=== PATIENT | female | born 1980 | race African-American/Black ===

== ENCOUNTER 2024-09-18 21:09 | Inpatient (IN) | payer OTHER, SELFPAY ==
[2024-09-18] VITALS (7 sets, daily range): BP systolic 112–130; BP diastolic 68–99; BMI 23.9; BMI 23.8
[2024-09-18 12:54] LABS: % Basophils 1.3 % (0-2); % Eosinophils 5.8 % (0-6); % Immature Granulocytes 0.2 % (0-0.5); % Lymphocytes 26.9 % (20.5-51.1); % Monocytes 9.4 % (1.7-9.3); % Neutrophils 56.4 % (42.2-75.2); Absolute Basophils 0.1 10^3/uL (0-0.2); Absolute Eosinophils 0.3 10^3/uL (0-0.7); Absolute Lymphocytes 1.3 10^3/uL (1.2-3.4); Absolute Monocytes 0.4 10^3/uL (0.1-0.6); Absolute Neutrophils 2.7 10^3/uL (1.4-6.5); Hematocrit 42.2 % (37.0-47.0); Hemoglobin 13.4 g/dL (12.0-16.0); Mean Corp Hgb Conc. 31.8 g/dL (33.0-37.0); Mean Corpuscular Hgb 26.3 pg (27.0-31.0); Mean Corpuscular Volume 82.7 fL (81.0-99.0); Mean Platelet Volume 9.2 fL (7.4-10.4); Nucleated Red Blood Cells % 0 %; Platelet Count 310 10^3/uL (130-400); Red Cell Dist. Width 15.8 % (11.5-14.5); White Blood Cell Count 4.7 10^3/uL (4.8-10.8)
[2024-09-18 13:05] LABS: HCG, Serum Qualitative Screen Negative
[2024-09-18 13:27] LABS: Blood Urea Nitrogen 19 mg/dl (7-17); Calcium 9.3 mg/dl (8.4-10.2); Carbon Dioxide 32 mmol/L (22-30); Chloride 99 mmol/L (98-107); Estimated Creatinine Clearance 113 ml/min; Glucose 80 mg/dl (70-99); Sodium 139 mmol/L (135-145); eGFR > 60.00
[2024-09-18] MEDS: TORADOL 15 MG IV (14:57)
--- NOTE | 2024-09-18 17:04 | CON.MD ---
Consultation - Medical
-
This is a 43 year old AA female with history of heroin use (crack, denies IVDA) seen today with concern of pain and discoloration to toes left foot 1,2,3. She states she was seen 3 weeks ago for swelling to the left foot
There is no history of injury, exposure to cold.
PMH - also includes Benzo withdraw,Opiate dependence, Denies HIV, DM2 or any other known pmh.
Reviewed available history, allergies and meds
EXAM-
Pedal pulses are diminished 1/4 DPA B/L, CFO CONTROLLER 2/4. Feet are warm and dry. Integument is scaly and dry with fungal dermatitis. Nails are over grown and mycotic x 10. Minimal Left foot edema. + Pain to toes left foot, however, necrotic area is dry and
non fluctuant and appears to be superficial.
XRAY was negative for any underlying pathology osteomyelitis, fracture or ST gas.
A/P
Primary concern- Pain left foot with dry superficial necrosis to toes 2,3 and healing bulla left great toe may be the result of micro embolization. I am unaware of cardiac history or if there is any and would recommend cardiology eval if one has not
been performed. Wound care with xeroform and dry dressing of unfolded 4x4 and paper tape to affix over xeroform and gauze. DARCO, post op shoe to avoid pressure to toes.
Secondary concerns-Tinea pedis and onychomycosis-Recommend wash/dry feet 2-3x per week, apply topical antifungals to feet. Medically necessary nail care.
--- NOTE | 2024-09-18 17:17 | EDRN ---
the pt is resting in stretcher in the lowest position, side rails up x2, call garnett within reach, HOB elevated, no s/s of distress, VS WNL, the pt asked for tierra shayna and a sandwich and this RN provider tierra corral and an ER lunch box for her,
awaiting for podiatry to come to the pts bedside
--- NOTE | 2024-09-18 18:32 | ED.GENMED ---
History of Present Illness
General
Chief Complaint: Skin Problem
Source: patient
Exam Limitations: none
Time Seen by Provider: 09/18/24 12:39
History of Present Illness
History of Present Illness:
43-year-old female who presents for evaluation of her left foot and great toe. The patient states she has had pain. In addition, she admits that she has had swelling and pain for the last 3-week. No fevers. No chest pain. No shortness of
breath. Patient admits that she was at [facility] a few weeks ago and had similar pains but was also having chest pain. Patient is unable to give further specific history. She denies fevers. She denies IV drug use. She denies any recent
cold exposure or frostbite.
Past History
Past History
ED Past Medical History: Asthma, HTN and Other (Opiate use)
Phy Exam
Physical Exam
Physical Exam:
CONSTITUTIONAL Vital signs reviewed, Patient alert and oriented to person, place and time. Well-appearing
HEAD atraumatic, normocephalic.
EYES eyelids normal to inspection, Extraocular muscles intact, Conjunctiva normal, Sclera normal.
NECK normal range of motion, Trachea midline, no jugular venous distention.
RESP no respiratory distress
BACK No obvious deformities
UPPER EXTREMITY Gross Range of motion normal, gross motor strength normal
LOWER EXTREMITY Gross range of motion normal, Gross motor strength normal. There is dry cracking noted to the digits of the left foot. Both feet are warm and well-perfused. Difficult to palpate dorsalis pedis pulses but Dopplers do show pulses.
She does have black skin noted to the tips of the digits 2 and 3 and blackened skin noted to the base of the first digit as well. No drainage. No blisters.
NEURO Speech normal, No focal motor deficits include, [place] coma scale 15, Memory normal, Cranial Nerves intact to screening exam.
SKIN Skin warm, dry, and normal in color.
PSYCHIATRIC Patient oriented to person place and time, Normal affect.
Course
Orders/Labs/Results
Orders:
Orders
09/18/24 12:37
Test Result ONCE
09/18/24 12:43
Basic Metabolic Panel Urgent
Complete Blood Count/With Diff Urgent
HCG, Serum Qualitative Screen Urgent
09/18/24 13:04
Foot, Left 3 View [CR Foot - Left Min 3 Views] Urgent
Comment:
Reason For Exam: pain, infection
09/18/24 13:55
Ketorolac [Toradol] 15 mg IV NOW STA
09/18/24 17:02
PODIATRY CONSULT Urgent
Consulting Provider: Marcia Mendosa
Was physician already notified: Yes
Abnormal Lab Results
09/18/24
12:43
WBC 4.7 L 10^3/uL
(4.8-10.8)
MCH 26.3 L pg
(27.0-31.0)
MCHC 31.8 L g/dL
(33.0-37.0)
RDW 15.8 H %
(11.5-14.5)
Monocytes % 9.4 H %
(1.7-9.3)
Carbon Dioxide 32 H mmol/L
(22-30)
BUN 19 H mg/dl
(7-17)
09/18/24 12:43
09/18/24 12:43
Vital Signs
Initial and Last Documented VS:
Initial Vital Signs
Temp Pulse Resp BP Pulse Ox
98.2 F 69 16 116/99 100
09/18/24 12:31 09/18/24 12:31 09/18/24 12:31 09/18/24 12:31 09/18/24 12:31
Last Documented Vital Signs
Temp Pulse Resp BP Pulse Ox
97.6 F 82 20 128/92 99
09/18/24 17:17 09/18/24 17:17 09/18/24 17:17 09/18/24 17:17 09/18/24 17:17
MDM/Problems Addressed
MDM/Problems Addressed:
Onychomycosis, toe skin wound, rule out micro emboli to the foot
*Radiology
Radiology exam reviewed: radiology read reviewed
*Pulse Oximetry
Patient hypoxic: no
*Critical Care Note
Total Time (30-74mins, 75-104mins- exclusive of procedures): Not Applicable
Data Reviewed
Source: patient
Prescriptions/Medications Considered But Not Given:
Considered antibiotics but podiatry feels no infection
Patient Management
Discussion with other providers: Hospitalist and Car Racer (Case discussed with podiatry)
Escalation/DeEscalation of care consider admission/obs:
Seen by podiatry. Recommends care as noted in her note. Does not recommend antibiotics at this time. Does need workup for emboli to the foot given the blackened skin to the first 3 digits
ED Attending Note
-
Portions of this chart may have been created with voice recognition software.� Occasional wrong word or��sound alike� substitutions may have occurred due to the inherent limitations of voice recognition software.
Discharge Plan
Departure
Referrals:
[facility] [Family Provider] -
Interventions
Interventions:
*Risk Screen - Suicide Last Done: 09/18/24 12:31
*General Assessment Last Done: 09/18/24 12:31
*Neglect/Abuse Screening Last Done: 09/18/24 12:31
ED- Fall Risk Assessment Last Done: 09/18/24 12:46
*ED COVID-19 Vaccine History Last Done: 09/18/24 12:46
ED-Skin Assessment Last Done: 09/18/24 12:46
Discharge Date and Time
Print Language: BULGARIAN
--- NOTE | 2024-09-18 19:16 | HPS.HSE ---
Family Physician
-
Family Physician: Facility [facility]
Chief Complaint
-
Left foot first, second, third toe pain prior bilateral foot swelling to heels +3
History of Present Illness
43-year-old female complaining of left foot first, second, third toe pain . She reports she was seen 3 weeks ago due to bilateral foot swelling to heels approximate +3. She was in [place] when picked up for a Bench warrant and then she started
complaining of chest pain and was taken to [facility]. She does have history of smoking crack cocaine starting 3 years ago. She states she believes she had a nuclear stress test on 09/06/2023 with an echo. She states they were not
concerned about any heart attack however she had some kind of valvular issue although did not report any decreased pumping quality/ejection fraction mentioned. She states slowly the swelling has gone down to bilateral feet and ankles. She has an
open blister to her left foot first great toe with a painful dark purpleish second toe and slight purplish third toe hypersensitive and touch. She has bilateral callused cracked heels and fungal toenails bilateral feet. She was then taken to [place] [facility] on 09/17 due to where her warrant was and is due to have her court appearance in front of a learning engineer this 09/20/2024 to possibly go home. She denies any history to exposure to cold or frostbite.
Medical History
Past Medical History
Past Medical History: Reports Other
Additional Past Medical History:
HTN
Crack cocaine use smoking past 2 to 3 years
Nicotine abuse x 7 years started a 38
7 para 7 last child age 33
Past Surgical History: Reports Other (Laparoscopic cholecystectomy)
Social History
Tobacco: Smoker (1 pack a day)
Alcohol: None
Drug: Cocaine (Smokes crack)
Personal: ( in )
[facility])
Employment: Disabled
Family History
Family History: Other (Patient's mother during childbirth with her sister 1 year younger than her, patient father is unknown patient grew up with maternal grandmother who in her 80s of [place])
Allergies / Home Medications
Allergies reflects when Allergies were last updated in [facility].
Home Medications with original date entered in [facility]
Allergy/Medication List:
Allergies
Allergy/AdvReac Type Severity Reaction Status Date / Time
amoxicillin Allergy Rash Verified 09/18/24 12:36
cephalexin [From Keflex] Allergy Rash Verified 09/18/24 12:36
Penicillins Allergy Rash Verified 09/18/24 12:36
sulfamethoxazole Allergy Rash Verified 09/18/24 12:36
[From Bactrim]
trimethoprim [From Bactrim] Allergy Rash Verified 09/18/24 12:36
Home Medications
carvedilol 25 mg tablet 25 mg PO BID 09/18/24
folic acid 1 mg tablet 1 mg PO DAILY 09/18/24
thiamine HCl (vitamin B1) 100 mg tablet 100 mg PO DAILY 09/18/24
valsartan 40 mg tablet (Diovan) 40 mg PO BID 09/18/24
Review of Systems
-
History Source: Patient and Other (2-3 correctional officers at bedside, right ankle handcuffed to bed)
A 12 point ROS was completed and negative except as noted: Yes
Constitutional: Denies Fever or Chills
EENT: Denies Tearing or Runny Nose
Respiratory: Denies Cough or Trouble Breathing
Cardiac: Denies Chest Pain, Diaphoresis, Palpitations or Syncope
Abdomen/GI: Denies Abdominal Pain, Nausea, Vomiting, Diarrhea or Constipated
: Denies Dysuria, Frequency, Flank Pain, Incontinence or Difficulty Voiding
Musculoskeletal: Reports Joint Pain (Left first, second, third toe pain, left first toe dorsal aspect popped blister, second toe and distal tip purpleish black increase sensitivity, third toe slight swelling with purpleish black in color increase
sensation, fungal toenails bilateral feet)
Skin: Denies Itching or Rash
Neurological: Denies Dizzy or Headache
Endocrine: Reports No Symptoms
Hematologic/Lymphatic: Reports No Symptoms
Psych: Reports Calm
Physical Exam
Vital Signs
Vital Signs
Temp Pulse Resp BP Pulse Ox
97.6 F 82 20 128/92 99
09/18/24 17:17 09/18/24 17:17 09/18/24 17:17 09/18/24 17:17 09/18/24 17:17
Physical Exam
General: Conversant and Pain; No Fever or Chills
HEENT: NormoCephalic, Anicteric, Moist mucous membranes, PERRLA, [place] Conjunctivae and No Ptosis
Respiratory: Clear; No Wheezes, Rales or Rhonchi
Cardiac: S1/S2 and Regular Rhythm; No Murmur, Rub, Gallop, Peripheral Edema or Calf Tenderness
Breast: Deferred by me
GI: Soft, Non Tender, Non Distended, Normal Bowel Sounds and No Hepatosplenomegaly
Rectal: Deferred by Provider
Genito-urinary: Deferred by me
Musculoskeletal: No Clubbing, Edema, Left Lower Extremity (Left first, second, third toe pain, left first toe dorsal aspect popped blister, second toe and distal tip purpleish black increase sensitivity, third toe slight swelling with purpleish
black in color increase sensation, fungal toenails bilateral feet) and Other (+2 bilat dorsal pedal pulse palpable); No Edema, Left Upper Extremity, Edema, Right Upper Extremity or Edema, Right Lower Extremity
Skin: Warm and Dry; No Rash or Jaundice
Neuro: AO x 3, No Motor Deficits and Other (Right ankle handcuffed to bed with 2 correctional officers at bedside as patient is from [facility]); No Slurred Speech, Facial Droop, Tremors or Sedated
Psych: Calm
Laboratory Results
-
09/18/24 12:43
09/18/24 12:43
Laboratory Results
Total Bilirubin Cancelled 09/18/24 12:43
AST Cancelled 09/18/24 12:43
ALT Cancelled 09/18/24 12:43
Alkaline Phosphatase Cancelled 09/18/24 12:43
Impression/Plan
-
Impression/plan:
Admit to [facility]
#Painful left foot with dry superficial necrosis second, third toes
#Healing open blister left great toe may be result of microembolization with recent blisters/+3 edema bilateral dorsal feet
-Seen by Dr. Mendosa at bedside podiatry
-Xeroform and dry dressing of unfolded 4 x 4 and paper tape to affix over -Xeroform and gauze
-Darco postop shoe to avoid pressure to toes
-Percocet 5/235 severe,mod pain tramadol, tylenol
-consult Vasc-spoke with Dr. Swain would like venous Dopplers bilateral legs rule out DVT, CTA aorta with runoff
CXR: Moderate soft tissue swelling of the great toe.
Large plantar calcaneal spur
#Tinea pedis/bilateral feet toes Onychomycosis
-Consider follow-up with podiatry
-Wash/dry feet 2 times per week
-Apply topical antifungals to feet
-Medically necessary nail care
#Reported chest pain 3 weeks ago
-Obtain records from [facility] was treated 1 - 09/07/2024
EKG: NSR 82 bpm, QTc [address] abnormality V2 V3
#HTN�benign
BP 128/92
-Continue carvedilol 25 mg twice daily
-Valsartan 40 mg p.o. twice daily
#Smoke crack cocaine 3 times a week
-Started approximately 2 to 3 years ago
#Nicotine abuse
-1 pack a day nicotine smoker x 7 years started age 38
# 7 para 7 by age 31
DVT prophylaxis
Subcu heparin
Full code
--- NOTE | 2024-09-18 19:52 | W.PN.UPDATE ---
Addendum entered and electronically signed by Jaycee Devries MD 09/18/24 21:11:
Vascular recommending CTA abdomen/aorta with runoff and venous duplex US.
Original Note:
Update Note
Progress Note Update
This is an addendum to the H&P written by Ashley Campos on 09/18/2024. Patient seen and examined independently with WELDING PRODUCTION SUPERVISOR.
43-year-old -Malagasy female past medical history of heroin use, crack use, hypertension, no prior IV drug use, presenting with pain and discoloration of the 1st-3rd left toes.
She was admitted at [facility] a few weeks ago for swelling in the lower extremities/chest pain. She had what sounds like a nuclear stress test/echo which apparently showed a valvular problem. She did not have discoloration of her toes at
that time.
Patient vital signs normal.
Examination of toe reveals blistering great toe.
Labs unremarkable apart from leukopenia. Foot x-ray shows moderate soft tissue swelling of the great toe.
EKG shows normal sinus rhythm with nonspecific ST-T wave changes.
She was seen by podiatry in the ER who noted diminished dorsalis pedis bilaterally and posterior tibialis pulses. Podiatry is concerned about potential microembolization. She also concerned for tinea pedis/onychomycosis.
Unclear if patient is having microembolization versus ischemia secondary to PAD secondary to crack cocaine/smoking versus underlying sickle cell versus underlying autoimmune disorder. Check arterial ultrasound/SANDEE. Vascular surgery consulted.
Will not repeat echocardiogram until we obtain records from the hospital. Wound care consulted.
[2024-09-18] MEDS: PERCOCET 5/325 1 TABLET PO (19:57)
[2024-09-18] MEDS: HEPARIN 5000 UNITS SC (22:32)
[2024-09-18] MEDS: ULTRAM 50 MG PO (22:34)
--- NOTE | 2024-09-19 00:17 | TRANSFER ---
Received pt from ED at 2145 dx w L 1st, 2nd,3rd pain, blister great toe, possible necrosis 2,3rd. Left foot toes were wrapped w xeroform & dav, unwrapped for assessment. Left great toe w +1 edema, open blister, and necrosis, scant s/s drainage
noted to xeroform. 2nd and 3rd toes noted w necrotic tips. Darco boot to left foot. +DP and +PT bilaterally. Pt AAOx3, able to make all needs known. VS WNL. Reports pain 10/10 when left foot touched. Bed in lowest position, call garnett within reach.
Guards at the bedside.
[2024-09-19] MEDS: PERCOCET 5/325 1 TABLET PO ×4 (05:09→21:48)
[2024-09-19 06:31] LABS: % Basophils 1.3 % (0-2); % Eosinophils 8.7 % (0-6); % Lymphocytes 39.8 % (20.5-51.1); % Monocytes 11.7 % (1.7-9.3); % Neutrophils 38.5 % (42.2-75.2); Absolute Eosinophils 0.3 10^3/uL (0-0.7); Absolute Lymphocytes 1.2 10^3/uL (1.2-3.4); Absolute Monocytes 0.4 10^3/uL (0.1-0.6); Absolute Neutrophils 1.2 10^3/uL (1.4-6.5); Hematocrit 35.9 % (37.0-47.0); Hemoglobin 11.6 g/dL (12.0-16.0); Mean Corp Hgb Conc. 32.3 g/dL (33.0-37.0); Mean Corpuscular Hgb 26.9 pg (27.0-31.0); Mean Corpuscular Volume 83.1 fL (81.0-99.0); Mean Platelet Volume 9.6 fL (7.4-10.4); Nucleated Red Blood Cells % 0 %; Platelet Count 271 10^3/uL (130-400); Red Blood Cell Count 4.32 10^6/uL (4.20-5.40); Red Cell Dist. Width 15.7 % (11.5-14.5)
[2024-09-19 06:58] LABS: Blood Urea Nitrogen 23 mg/dl (7-17); Calcium 8.6 mg/dl (8.4-10.2); Carbon Dioxide 31 mmol/L (22-30); Chloride 100 mmol/L (98-107); Estimated Creatinine Clearance 85 ml/min; Glucose 79 mg/dl (70-99); Potassium 4.4 mmol/L (3.5-5.1); Sodium 137 mmol/L (135-145); eGFR > 60.00
--- NOTE | 2024-09-19 07:59 | CON.VAS ---
Consultation
Consultation Request
Date/Time Consultation Performed: 09/19/2024 0745
Requesting Provider: Hospitalist
Performing Provider: Sarah Allan NP-C for Ryan Swain MD
Reason for Consultation: Left foot first second and third digit wound
Medical History
-
Chief Complaint: Left foot first second and third digit wounds
History of Present Illness:
This is a 43-year-old female without significant prior medical history other than hypertension who noted 3 weeks ago foot swelling to the heels. She was picked up for a warrant and arrested and at that time complained of chest pain and was
transported to the hospital in [place] ([facility]) and was ruled out for a coronary event. She notes that the swelling has subsided but now has painful discolored blisters especially in the left foot great toe and some of the other
toes as well. Right side first toe slight discoloration she notes but no significant ulcerations that she notes. She denies any traumas or history of cold exposure. No history of peripheral arterial disease. She does note tobacco use history.
She also has a history of cocaine abuse.
Left foot
Past Medical History
Past Medical History: HTN and Other ( 7 para 7 last child age 33)
Past Surgical History: Cholecystectomy (Laparoscopic)
Social History
Tobacco: Smoker
Drug: Cocaine
Allergies / Home Medications
Allergy/AdvReac Type Severity Reaction Status Date / Time
amoxicillin Allergy Rash Verified 09/18/24 12:36
cephalexin [From Keflex] Allergy Rash Verified 09/18/24 12:36
Penicillins Allergy Rash Verified 09/18/24 12:36
sulfamethoxazole Allergy Rash Verified 09/18/24 12:36
[From Bactrim]
trimethoprim [From Bactrim] Allergy Rash Verified 09/18/24 12:36
�Medication �Instructions �Recorded �Confirmed �Type
albuterol 90 mcg-budesonide 80 2 inh inhalation BID 09/18/24 09/18/24 History
mcg/actuation HFA aerosol inhaler
carvedilol 25 mg tablet 25 mg PO BID 09/18/24 09/18/24 History
folic acid 1 mg tablet 1 mg PO DAILY 09/18/24 09/18/24 History
thiamine HCl (vitamin B1) 100 mg 100 mg PO DAILY 09/18/24 09/18/24 History
tablet
valsartan 40 mg tablet (Diovan) 40 mg PO BID 09/18/24 09/18/24 History
Review of Systems
-
History Source: Patient
Constitutional: Reports No Symptoms
EENT: Reports No Symptoms
Respiratory: Reports No Symptoms
Cardiac: Reports No Symptoms
Vascular: Denies Leg Pain / Claudication, Numbness or Tingling
Abdomen/GI: Reports No Symptoms
: Reports No Symptoms
Musculoskeletal: Reports Edema (Reports she had increased swelling at bilateral lower extremities)
Skin: Reports Other (Wounds at left first, second, and third toe digits with foot pain)
Neurological: Reports No Symptoms
Endocrine: Reports No Symptoms
Physical Exam
Vital Signs
Temp Pulse Resp BP Pulse Ox
98.0 F 84 18 92/54 99
09/18/24 21:45 09/18/24 23:39 09/18/24 21:45 09/18/24 23:39 09/18/24 21:45
Lab Results
09/19/24 04:49
09/19/24 04:49
Physical Exam
General: No Apparent Distress
HEENT: Normocephalic, Anicteric and Atraumatic
Respiratory: Non Labored Respirations
Cardiac: Negative JVD
GI: Soft, Non Tender and Non Distended
Musculoskeletal: No Edema
Skin: Warm
Neuro: AO x 3
Pulses: Bilateral Femoral: +2, Bilateral Popliteal: +2, Bilateral Dorsalis Pedis: +2 and Bilateral Posterior Tibial: +1
Assessment / Plan
-
Assessment: 43-year-old female with wound at left foot first, second, and third digits
Plan/based on findings, Dr. Ryan Swain discussed with patient from a vascular perspective would favor ruling out a DVT given that she had swelling that predated the ulcerations. In addition based on the appearance and involvement of both feet, he
recommended we get a CTA of the aorta with runoff to rule out any atheroembolic source.
Dr. Ryan Swain reviewed her CT angiogram that was completed. No evidence any atheroembolic source. No evidence of any aortic aneurysms. No significant plaque in her aorta or runoff arteries. No evidence of significant occlusive disease. Venous
duplex demonstrates no evidence of DVT. Therefore I do not think there is a clear-cut vascular pathology here. For completeness sake we could get a CT scan of the chest to rule out any thoracic aortic aneurysm that may be embolizing, but seems
less likely. Her abdominal CT demonstrates what appears to be an enlarged uterus or some other mass in her pelvis or that emanates from her pelvis. This may correlate to her fullness on exam in the abdomen. Will defer to her primary care team for
further management and evaluation/workup of this.
[2024-09-19 08:50] VITALS: BP 117/78
[2024-09-19] MEDS: DIOVAN 40 MG PO ×2 (09:35→20:18)
[2024-09-19] MEDS: VITAMIN B1 100 MG PO (09:35)
[2024-09-19] MEDS: HEPARIN 5000 UNITS SC ×2 (09:35→20:19)
[2024-09-19] MEDS: FOLVITE 1 MG PO (09:36)
[2024-09-19] MEDS: COREG 25 MG PO ×2 (09:36→20:19)
--- NOTE | 2024-09-19 09:51 | CM ---
Reviewed the chart notes and spoke with the patient at the bedside. Patient currently incarcerated in the [facility]. The patient prior resided with her children in a two story home with one step to enter. The patient reports only DME is a nebulizer.
No VN/SNF in the past. CM continues to be available to patient/family and is monitoring medical plan for needs at discharge.
Plan: Discharge back to [facility] when medically stable if required.
--- NOTE | 2024-09-19 10:50 | W.PN.UPDATE ---
Update Note
Progress Note Update
Seen and examined earlier this a.m. with RODY Allan. Full consultation to follow. Briefly 43-year-old female without significant prior medical history noted 3 weeks ago foot swelling to the heels. She was picked up for a warrant and arrested and at
that time complained of chest pain and was transported to the hospital in [place] ([place]) and was ruled out for a coronary event. She notes that the swelling has subsided but now has painful discolored blisters especially in the left foot
great toe and some of the other toes as well. Right side first toe slight discoloration she notes but no significant ulcerations that she notes. She denies any traumas or history of cold exposure. No history of peripheral arterial disease. She
does note tobacco use history. She also has a history of crack cocaine abuse. On exam/she is awake and alert. Head is normocephalic and atraumatic. Eyes are anicteric. Neck is soft without jugular venous distention. Breathing is unlabored.
Abdomen is soft though there is a fullness. I ask if she has had any prior surgery and she denies. Lower extremity with 2+ femoral, popliteal and PT pulses palpable 2+ bilaterally. DP pulses slightly weak bilaterally. However they are palpable.
Feet are warm. No rubor. Left first toe distal superficial ulceration. No purulence. No ranjan dry gangrene per se. There is some discoloration of the other toes. Right foot less discolored and no ulcerations just the first toe dorsum with
slight blackish discoloration superficially.
Plan/based on findings, I discussed with patient from a vascular perspective would favor ruling out a DVT given that she had swelling that predated the ulcerations. In addition based on the appearance and involvement of both feet, I recommended we
get a CTA of the aorta with runoff to rule out any atheroembolic source.
I reviewed her CT angiogram that was completed. No evidence any atheroembolic source. No evidence of any aortic aneurysms. No significant plaque in her aorta or runoff arteries. No evidence of significant occlusive disease. Venous duplex
demonstrates no evidence of DVT. Therefore I do not think there is a clear-cut vascular pathology here. For completeness sake we could get a CT scan of the chest to rule out any thoracic aortic aneurysm that may be embolizing, but seems less
likely. Her abdominal CT demonstrates what appears to be an enlarged uterus or some other mass in her pelvis or that emanates from her pelvis. This may correlate to her fullness on exam in the abdomen. Will defer to her primary care team for
further management and evaluation/workup of this.
[2024-09-19 15:16] VITALS: BP 102/60
--- NOTE | 2024-09-19 15:39 | W.PN.HOSP.TC ---
Today's Communication/Plan
-
Assessment / Plan
Assessment / Plan
Gen-AAOx3, NAD
HEENT-NC, AT, anicteric, clear oral mm
Neck-supple
CV-reg, no M, +S1/S2
Lungs-clear B/L
Abd-soft, NT, ND
Musculoskeletal-no edema, left toes with wound dressing clean dry intact
Skin-warm and dry
Neuro-grossly non-focal
Psych-calm, cooperative
Left toe pain:
-Involving first second and third toes with open blister and edema
-Continue local wound care and antifungals, pain control
-Vascular imaging shows no evidence of acute abnormality, no vascular intervention indicated
Uterine mass:
-Incidentally noted on CT imaging
-Obtain pelvic ultrasound
-Follow-up further recommendations from [employer]
History of chest pain:
-Obtain records from [facility] in [facility] where she was apparently treated 1 - 09/07/24
CODE STATUS: Full code
Anticipated Discharge: Within 24 hours
Subjective/Interval History
-
Date of Service: September 19, 2024
Ms. Vallejo was seen and examined at bedside this morning. No acute distress.
Objective Data
-
Labs:
Laboratory Results
09/19/24
04:49
WBC 3.0 L
Hgb 11.6 L
Hct 35.9 L
Plt Count 271
Sodium 137
Potassium 4.4
Chloride 100
Carbon Dioxide 31 H
BUN 23 H
Creatinine 0.8
Glucose 79
Calcium 8.6
Vital Signs:
Vital Signs
Temp Pulse Resp BP Pulse Ox
98.2 F 80 16 102/60 97
09/19/24 15:16 09/19/24 15:16 09/19/24 15:16 09/19/24 15:16 09/19/24 15:16
I&O
09/18/24 09/19/24 09/20/24
06:59 06:59 06:59
Intake Total 960 / 960
Balance 960 / 960
Review of Systems
-
History Source: Patient
All other systems: Reviewed and negative
[2024-09-19] MEDS: MELATONIN 5 MG PO (21:48)
[2024-09-19 23:26] VITALS: BP 102/64
[2024-09-20] MEDS: PERCOCET 5/325 1 TABLET PO ×3 (03:24→14:33)
[2024-09-20 07:25] VITALS: BP 112/64
[2024-09-20] MEDS: VITAMIN B1 100 MG PO (09:26)
[2024-09-20] MEDS: DIOVAN PO (09:33)
[2024-09-20] MEDS: HEPARIN 5000 UNITS SC (09:33)
[2024-09-20] MEDS: COREG PO (09:33)
[2024-09-20] MEDS: FOLVITE 1 MG PO (09:34)
--- NOTE | 2024-09-20 10:42 | CS.OBGYN ---
Consult Summary - [employer]
-
43 y/o menstruating female was seen in consult for a uterine mass that was seen on her CT angio that was done to assess the vasculature going to her lower extremity/Foot.
Pt seen and examined. Full consult dictated
Of note-- Monthly menses lasts 1-2 days. Min flow. No abnormal bleeding/ No bleeding in between her periods. No dysmenorhea
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 No h/o wood patternmaker problems
Pt wasn't aware that she had fibroids but they do run in her family
Vulva/ vagina- Nl No lesions
Abd- Soft/NT
Uterus- 16-18 weeks size/AV/NT
Adnexa- BINGO MANAGER
A/P-
43 y/o without any menstrual dysfunction- with an incidental, asymptomatic fibroid found on imaging
Imaging shows a large fibroid but can't rule out sarcoma
Extremely low suspicion of a sarcoma given the fact that pt is asymptomatic, no menometrorrhagia, no risk factors for sarcoma- no h/o tamoxifen use or pelvic radiation.
There are no imaging findings to suggest sarcoma- No areas of necrosis, No hemorrhage within the fibroid mass, No adenopathy and no peritoneal implants
Fibroids are super common especially in the population and sarcomas are exceedingly rare.
No wood patternmaker concerns to keep pt hospitalized frm a wood patternmaker standpoint at this time
Would recommend that she follow up with a wood patternmaker as an outpt
--- NOTE | 2024-09-20 13:08 | W.DCSUMMARY ---
Discharge Summary
Discharge Data
Date of Admission: 09/18/24
Date of Discharge: 09/20/24
-
Pending Results: No
Hospital Course
Gen-AAOx3, NAD
HEENT-NC, AT, anicteric, clear oral mm
Neck-supple
CV-reg, no M, +S1/S2
Lungs-clear B/L
Abd-soft, NT, palpable lower abdominal mass
Musculoskeletal-no edema, left toes with wound dressing clean dry intact
Skin-warm and dry
Neuro-grossly non-focal
Psych-calm, cooperative
Ms. Vallejo is a 43-year-old female with a medical history of hypertension, crack cocaine use, and dysmenorrhea who presented with left foot pain and swelling. She she received local wound care here. Vascular imaging showed no evidence of DVT or
ischemic disease. Wound did not appear grossly infected however she will be given a prescription for 5-day course of antibiotics for possible soft tissue infection. Imaging incidentally noted a large uterine mass. Patient reports having only 1
day of vaginal bleeding per menstrual cycle which has been normal for her for over the past 10 years. She reports being unaware of any uterine abnormalities. She underwent further evaluation with transvaginal ultrasound. After evaluation by
gynecology, these uterine findings are most likely extensive uterine fibroids which can be further managed in the outpatient setting with no indication for ongoing inpatient evaluation and treatment. Of note, she arrived in police custody from
[facility] where she was taken after being released from health system in [facility] where she was evaluated for complaints of chest pain. She reports having undergone nuclear stress test on 09/06/2023 at
health system with reports of a valvular issue (per patient). Records were requested but have not yet been obtained or reviewed. At the time of this hospital discharge she will be released back to the custody of [facility]
Facility's officers.
Discharge Plan
-
Patient Disposition: [facility]
Discharge Diagnosis/Procedures: Left foot wound
Condition: Good
Diet: No restrictions
Activity: As tolerated
Wound Care: Will require wound care to left foot
Activity Restrictions/Additional Instructions:
Ms. Vallejo is a 43-year-old female with a medical history of hypertension, crack cocaine use, and dysmenorrhea who presented with left foot pain and swelling. She she received local wound care here. Vascular imaging showed no evidence of DVT or
ischemic disease. Wound did not appear grossly infected however she will be given a prescription for 5-day course of antibiotics for possible soft tissue infection. Imaging incidentally noted a large uterine mass. Patient reports having only 1
day of vaginal bleeding per menstrual cycle which has been normal for her for over the past 10 years. She reports being unaware of any uterine abnormalities. She underwent further evaluation with transvaginal ultrasound. After evaluation by
gynecology, these uterine findings are most likely extensive uterine fibroids which can be further managed in the outpatient setting with no indication for ongoing inpatient evaluation and treatment. Of note, she arrived in police custody from
[facility] where she was taken after being released from health system in [facility] where she was evaluated for complaints of chest pain. She reports having undergone nuclear stress test on 09/06/2023 at
health system with reports of a valvular issue (per patient). Records were requested but have not yet been obtained or reviewed. At the time of this hospital discharge she will be released back to the custody of [facility]'s officers.
Referrals:
[facility],Facility [Family Provider] -
Prescriptions:
New
ciprofloxacin HCl 750 mg tablet
750 mg PO BID 5 Days Qty: 10 0RF
metronidazole 250 mg tablet
250 mg PO Q8H 5 Days Qty: 15 0RF
Continued
carvedilol 25 mg Tablet
25 mg PO BID
thiamine HCl (vitamin B1) 100 mg Tablet
100 mg PO DAILY
folic acid 1 mg Tablet
1 mg PO DAILY
valsartan [Diovan] 40 mg Tablet
40 mg PO BID
albuterol-budesonide 90-80 mcg/actuation Hfa Aerosol Inhaler
2 inh INHALATION BID
Rx Instructions:
as a single dose; may repeat up to 6 doses per day (12 inhalations)
Discharge Orders:
Discharge Patient (As Directed); Ordered 09/20/24
Ordered By: Giuseppe Garibay
Discharge Date and Time
Print Language: SPANISH
--- NOTE | 2024-09-20 13:39 | CM ---
Pt for discharge today - return to [facility]
Spoke with [facility] in Dispensary - aware of d/c
Plan - return to [facility]
R - [phone]
- [phone]
[2024-09-20 15:26] VITALS: BP 105/59
== END 2024-09-20 18:05 | DRG 607 ==
LOC: 2 SOUTH 21:09
PROVIDERS: Clinical Nurse Specialist Family Health; ADMITTING PHYSICIAN Hospitalist; ATTENDING PHYSICIAN Internal Medicine; CONSULT PHYSICIAN Obstetrics & Gynecology Gynecology; CONSULT PHYSICIAN Podiatrist Foot & Ankle Surgery; EMERGENCY PHYSICIAN Emergency Medicine; OTHER PHYSICIAN Surgery Vascular Surgery
DX: S90.422A Blister (nonthermal), left great toe, initial encounter (principal); F14.90 Cocaine use, unspecified, uncomplicated; F17.210 Nicotine dependence, cigarettes, uncomplicated; B35.1 Tinea unguium; D25.9 Leiomyoma of uterus, unspecified; S90.425A Blister (nonthermal), left lesser toe(s), initial encounter; X58.XXXA Exposure to other specified factors, initial encounter
CPT/HCPCS: 73630; 75635; 76856; 80048; 84703; 85025; 87070; 87147; 93005; 93970; 96374; 97116; 99285; Q9967